=== PATIENT | female | born 1945 | race Two or more races ===

== ENCOUNTER 2020-11-15 13:55 | Outpatient (CLI) | payer MEDICARE, BC, SELFPAY ==
--- NOTE | ~2020-11-15 | CT_ITS ---
EXAMINATION: CT abdomen pelvis wo con DATE: 11/15/2020 14:19 INDICATION: Panniculitis. TECHNIQUE: Computed tomography (CT) of the abdomen and pelvis was performed without intravenous contr ast. Automated exposure control and iterative reconstruction technique were employed. The dose-length product was 1018.93 mGy-cm. COMPARISON: None. FINDINGS: The visualized portions of the lung bases demonstrate mild atelectasis on the left. A calci fied right lung nodule is consistent with old granulomatous disease. There is a pneumatocele in right lower lobe. No pleural effusion. The heart size is normal. No pericardial effusion. The liver, gallb ladder, spleen, pancreas, adrenal glands, and right kidney are normal. There are cysts in left kidney measuring up to 2.9 cm. There is no urolithiasis. There is diverticulosis of the colon without evide nce of diverticulitis. There are no dilated loops of bowel. The appendix is normal. There is a spleno renal portacaval shunt. There are no pathologically enlarged lymph nodes. There is no free intraperit meyer fluid. 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 There is severe lower lumbar spondylosis. IMPRESSION: 1. No significant soft tissue inflammation or infection. Reviewed, dictated and finalized at location A.
== END 2020-11-15 13:56 | disposition home or self-care (01) ==
LOC: ANHIMG 14:01
PROVIDERS: PCP Internal Medicine; Visit Provider Surgery Plastic and Reconstructive Surgery
DX: M79.3 Panniculitis, unspecified (principal)
CPT/HCPCS: 74176